=== PATIENT | male | born 1980 | race Caucasian/White ===

== ENCOUNTER 2024-06-10 19:04 | Emergency (ER) | payer MEDICAID, SELFPAY ==
[2024-06-10 19:04] VITALS: BP 151/87; PULSE 67; RESP 16; TEMP 36.8; O2SAT 97; BMI 28.9
--- NOTE | 2024-06-10 19:19 | CT_ITS ---
We are attempting to reach an attending provider to discuss findings. An addendum with communication details will be sent when the communication is complete. INDICATION: llq pain EXAMINATION: CT ABDOMEN AND PELVIS WITH CONTRAST - CT Abdomen And Pelvis W/ Contrast Injection TECHNIQUE: Helically acquired images were obtained of the abdomen and pelvis following IV contrast. A radiation dose optimization technique was used for this scan. IV Contrast dosage and agent: 100 cc [id number] Oral contrast: None. COMPARISON: None. FINDINGS: LOWER CHEST: 10 mm noncalcified pleural-based nodule right lower lobe posteriorly. No acute pulmonary findings. No cardiomegaly or pericardial effusion. LIVER: Homogeneous. No focal mass. GALLBLADDER AND BILIARY TREE: No calcified gallstones. No gallbladder distension or wall edema. No intra- or extrahepatic biliary ductal dilation. PANCREAS: No focal cystic or solid mass. SPLEEN: Normal size without focal cystic or solid mass. ADRENAL GLANDS: No nodules. KIDNEYS AND URETERS: Uniform enhancement bilaterally. No hydronephrosis. PERITONEUM: No ascites or free air. BOWEL: Proximal appendix 7 mm without inflammatory changes or significant wall enhancement. No stomach or bowel distension. Diffuse, severe colonic diverticulosis without focal acute inflammatory bowel wall changes. LYMPH NODES: No enlarged mesenteric or retroperitoneal lymph nodes. VESSELS: Aorta is non-dilated. URINARY BLADDER: Unremarkable. REPRODUCTIVE ORGANS: No pelvic masses. ABDOMINAL WALL: Small fat-containing umbilical hernia. BONES: Unremarkable. CT/Abdomen/Pelvis W IV Cont ONLY IMPRESSION: Mildly prominent appendix, 7 mm diameter, without associated inflammatory changes. Findings represent possible appendicitis and surgical consultation with observation is recommended. 10 mm indeterminate pulmonary nodule right lower lobe. Per Fleischner Society guidelines follow-up CT, PET/CT or tissue sampling recommended at 3 months. Electronically Signed: Aubrey Berg MD at 20:46 EDT ,
--- NOTE | 2024-06-10 19:21 | EDS_ITS ---
HPI HPI - GI History of Present Illness Chief Complaint: Dizziness Narrative Narrative: 43-year-old male presenting with abdominal pain and blood in stool. He has had the abdominal pain for about 3 days. He states that he had a large bloody bowel movement today. He has had this in the past. Patient states he is working here from [place] and previously had a workup for this and had a colonoscopy which showed large polyps he had these removed. He states that he has had some bleeding in his stool every other day for a while now he is not on any blood thinners. Not having fevers or chills. He describes a lot of pain around the rectum. Patient also has a lot of pain in the left lower quadrant. [facility] Medical History (Updated 06/10/24 @ 19:27 by Cyndie Au) Abdominal hernia Home Medications ?Medication ?Instructions ?Recorded ?Last Taken ?Type NK 06/10/24 Unknown History Allergy/AdvReac Type Severity Reaction Status Date / Time amoxicillin AdvReac Intermediate Vomiting Verified 06/10/24 19:05 Penicillins AdvReac Intermediate Vomiting Verified 06/10/24 19:05 Social History Smoking Status: Current every day smoker tobacco type: cigarettes ROS ROS ED Constitutional Constitutional ED: Denies chills, fever(s) or sweats Eyes Eyes: Denies blurry vision or change in vision ENT ENT ED: Denies ear pain or sore throat Cardiovascular Cardiovascular: Denies chest pain, palpitations or racing heartbeat Respiratory/Chest Respiratory/Chest: Denies cough, dyspnea or sputum Gastrointestinal Gastrointestinal: Reports abdominal pain, diarrhea, nausea, vomiting and other Details: Blood in stool ; Denies constipation Genitourinary Genitourinary ED: Denies dysuria, hematuria or urinary frequency Musculoskeletal Musculoskeletal: Denies arthralgias, myalgias or neck pain Integumentary Denies abscess, Abrasions or rash Neurologic Neurologic: Denies headache(s), paresthesias or weakness Psychiatric Psychiatric: Denies anxiety, depression, suicidal ideation or suicidal thoughts Endocrine Endocrinology: Denies polydipsia or polyuria EXAM Physical Exam Const Vital Signs: 06/10/24 19:04 06/10/24 19:26 06/10/24 19:48 Temperature 98.2 F Temperature Source Temporal Pulse Rate 67 Pulse Rate [Lying] 65 Pulse Rate [Sitting (for 1 minute prior to obtaining)] 62 Respiratory Rate 16 Respiratory Effort Normal Respiratory Pattern Normal Blood Pressure 151/87 H Blood Pressure [Lying] 117/76 Blood Pressure [Sitting (for 1 minute prior to obtaining)] 123/84 H Blood Pressure [Standing (for 1 minute prior to obtaining)] 124/84 H Blood Pressure Mean 108 Blood Pressure Mean [Lying] 89 Blood Pressure Mean [Sitting (for 1 minute prior to obtaining)] 97 Blood Pressure Mean [Standing (for 1 minute prior to obtaining)] 97 Pulse Ox 97 Oxygen Delivery Method Room Air 06/10/24 21:04 Temperature Temperature Source Pulse Rate 16 L Pulse Rate [Lying] Pulse Rate [Sitting (for 1 minute prior to obtaining)] Respiratory Rate 16 Respiratory Effort Respiratory Pattern Blood Pressure 118/70 Blood Pressure [Lying] Blood Pressure [Sitting (for 1 minute prior to obtaining)] Blood Pressure [Standing (for 1 minute prior to obtaining)] Blood Pressure Mean 86 Blood Pressure Mean [Lying] Blood Pressure Mean [Sitting (for 1 minute prior to obtaining)] Blood Pressure Mean [Standing (for 1 minute prior to obtaining)] Pulse Ox 98 Oxygen Delivery Method Room Air Positive well nourished General Appearance ED: NAD; Negative for pallor HEENT Reports moist mucous membranes normocephalic Eyes PERRL and EOMs intact bilaterally Resp normal respiratory effort and clear to auscultation bilaterally Auscultation: Negative for rales, rhonchi or wheezes Cardio regular rate and regular rhythm GI Palpation: tender LLQ Neuro CN's II-XII intact bilaterally Sensorium / Orientation: alert Psych mental status grossly normal Skin General Skin Exam: Negative for jaundice or pallor MDM MDM MDM Narrative Medical decision making narrative: Patient presenting with left lower quadrant pain. Patient presenting with right flank pain. Differential includes colitis, diverticulitis, gastritis, pancreatitis, constipation, UTI, pyelonephritis, renal calculi, ureteral calculi, bowel obstruction, malignancy, dehydration, electrolyte abnormalities. CBC will be obtained to assess white blood cell count, hemoglobin, platelets. CMP to assess renal function, electrolytes, liver function, glucose. Lipase to assess for pancreatitis. Urinalysis to assess for UTI. CBC shows normal white blood cell count at 9.6. Hemoglobin 14.6. Platelets are normal at 229. Renal function electrolytes within normal limits. LFTs are normal. Lipase slightly elevated at 344. Was called by the radiologist to discuss the patient's CT as he has a prominent appendix at 7 mm diameter. There is no associated inflammatory changes however. It is recommended that he have a a surgical consult. I spoke with Dr. Sanabria at 9:10 PM. He recommended repeating a CT scan with oral contrast. Patient was counseled on this. He was given Reglan as he still little nauseous. He refuses anything for pain. I ordered oral contrast for the patient. At some point put on his close and walked out of the emergency room without telling anybody. There was concern that his IV was in place but he is from out of town and we do not matter recheck. He did not answer his phone. Impression: 1. Abdominal pain 2. Nausea/vomiting 3. Hematochezia 4. Elevated lipase 5. Abnormal CT scan Lab Data Attestation: I reviewed the patient's lab results. Labs: Laboratory Results - last 24 hr 06/10/24 19:27 WBC 9.6 RBC 4.60 Hgb 14.6 Hct 40.5 MCV 88.0 MCH 31.7 MCHC 36.0 RDW Std Deviation 39.0 RDW Coeff of Domingo 12.1 Plt Count 229 MPV 10.9 Immature Gran % (Auto) 0.500 Neut % (Auto) 62.2 Lymph % (Auto) 25.7 Pope % (Auto) 6.9 Eos % (Auto) 3.9 Baso % (Auto) 0.8 Absolute Neuts (auto) 5.9 Absolute Lymphs (auto) 2.45 Nucleated RBC % 0 Sodium 138 Potassium 3.5 Chloride 107 Carbon Dioxide 24.0 Anion Gap 7 BUN 15 Creatinine 1.23 Estim Creat Clear Calc 84.51 Est GFR (MDRD) Af Amer 82 Est GFR (MDRD) Non-Af 68 BUN/Creatinine Ratio 12.2 Glucose 132 H Calcium 8.5 Total Bilirubin 0.50 AST 19 ALT 29 Alkaline Phosphatase 72 Total Protein 7.5 Albumin 3.8 Globulin 3.7 Albumin/Globulin Ratio 1.0 Lipase 344 H Radiography Diagnostic Testing: Clinical Impression(s) from Imaging Studies Abdomen/Pelvis CT 06/10/24 19:19 IMPRESSION: Mildly prominent appendix, 7 mm diameter, without associated inflammatory changes. Findings represent possible appendicitis and surgical consultation with observation is recommended. 10 mm indeterminate pulmonary nodule right lower lobe. Per Fleischner Society guidelines follow-up CT, PET/CT or tissue sampling recommended at 3 months. Electronically Signed: Aubrey Berg MD at 20:46 EDT , ADDENDUM: 06/10/242058 IMPRESSION: Mildly prominent appendix, 7 mm diameter, without associated inflammatory changes. Findings represent possible appendicitis and surgical consultation with observation is recommended. 10 mm indeterminate pulmonary nodule right lower lobe. Per Fleischner Society guidelines follow-up CT, PET/CT or tissue sampling recommended at 3 months. N.B. : The above Results were Read Back by Aubrey Berg MD to Ulices Jang DO, and understanding confirmed on 06/10/2024 20:52:58 (ET). Electronically Signed: Aubrey Berg MD at 20:46 EDT , Discharge Plan Triage Chief Complaint: Dizziness ED Provider: Uliecs Jang Dx/Rx/DC Orders Prescriptions: No Action NK Primary Care Provider: Care Physician,No Primary Referrals: Care Physician,No Primary [Primary Care Provider] - Print Language: Slovak Disposition Disposition: Elopement Discharge Date/Time: 06/10/24 21:52
[2024-06-10 19:38] LABS: Absolute Lymphocyte Count 2.45 X10^3/uL (0.83-4.51); Absolute Neutrophil Count 5.9 X10^3/uL (2.0-7.7); Basophil# 0.08 X10^3/uL; Basophil% 0.8 % (0-1); Eosinophil# 0.37 X10^3/uL; Eosinophils% 3.9 % (0-5); Hematocrit 40.5 % (40-54); Hemoglobin 14.6 g/dL (13.0-16.5); Lymphocyte # 2.45 X10^3/ul (0.83-4.51); Lymphocyte % 25.7 % (19-41); Mean Corpuscular Hgb 31.7 pg (27.0-32.0); Mean Platelet Vol. 10.9 fl (6.2-12.0); Monocyte# 0.66 X10^3/uL; Monocyte% 6.9 % (0-10); NRBC Flagged by Analyzer 0 % (0-5); Neutrophil # 5.94 X10^3/uL (2.7-7.7); Neutrophil % 62.2 % (47-70); Platelet Count 229 K/mm3 (150-450); RBC Distribution Width CV 12.1 % (11.6-14.6); White Blood Count 9.6 K/mm3 (4.4-11.0)
[2024-06-10] MEDS: Ondansetron 4 MG/2 ML Vial IV (19:45)
[2024-06-10 19:48] VITALS: BP 117/76; BP 123/84; BP 124/84; PULSE 62; PULSE 65
[2024-06-10 19:55] LABS: AST(SGOT) 19 U/L (15-37); Alanine Aminotransfer ALT/SGPT 29 U/L (16-61); Albumin, Serum 3.8 g/dL (3.2-5.0); Alkaline Phosphatase 72 U/L (45-117); Anion Gap 7 (5-15); BUN 15 mg/dL (7-18); BUN/Creat Ratio 12.2 RATIO (10-20); Calcium,Total 8.5 mg/dL (8.5-10.1); Chloride 107 mmol/L (98-107); Creatinine, Serum 1.23 mg/dL (0.70-1.30); EST Glomerular Filtration Rate 68 mL/min (>60); Est Glom Filt Rate - Afr Amer 82 mL/min (>60); Estimated Creatinine Clearance 84.51 ml/min; Globulin 3.7 g/dL (2.2-4.2); Glucose 132 mg/dL (74-106); Lipase 344 U/L (13-75); Potassium 3.5 mmol/L (3.5-5.1); Protein, Total 7.5 g/dL (6.4-8.2); Sodium Level 138 mmol/L (136-145)
[2024-06-10 21:04] VITALS: BP 118/70; PULSE 16; RESP 16; O2SAT 98
[2024-06-10] MEDS: Metoclopramide 10 MG/2 ML Vial IV (21:23)
--- NOTE | 2024-06-10 21:57 | ED.RN ---
2152: PT. PLACED CALL LIGHT ON AND WHEN THIS NURSE WENT TO CHECK ON PATIENT THE ROOM WAS EMPTY. SECURITY CHECK THE PROPERTY AND NEITHER BATHROOM WAS OCCUPIED. UNABLE TO DETERMINE IF THERE WAS AN IV STILL IN PLACE. NO ANGIOCATH FOUND IN THE TRASH CAN IN PATIENT ROOM OR BATHROOMS. THE CHARGE NURSE Carmita CALL NOTIFIED. PATIENT IS FROM OUT [facility] ([place] AND NO LOCAL ADDRESS ON FILE. 2153: I MADE TWO ATTEMPTS TO CALL THE PATIENT W/ NO ANSWER BY THE PATIENT. THE VOICEMAIL BOX WAS NOT SET UP.
== END 2024-06-10 21:52 | disposition left against medical advice (07) ==
LOC: ED 20:07
PROVIDERS: Emergency Provider Student in an Organized Health Care Education/Training Program; Visit Provider Student in an Organized Health Care Education/Training Program
DX: R10.9 Unspecified abdominal pain (principal); R11.2 Nausea with vomiting, unspecified; K92.1 Melena; R74.8 Abnormal levels of other serum enzymes; F17.210 Nicotine dependence, cigarettes, uncomplicated
CPT/HCPCS: 74177; 80053; 83690; 85025; 96374; 96375; 99285; Q9967; A4216; J2405